=== PATIENT | female | born 1970 | race Two or more races ===

== ENCOUNTER → 2016-11-12 | Outpatient (CLI) | payer OTHER | LOC: M PAIN 11:20 | PROVIDERS: ATTEND Anesthesiology | DX: Z53.29 Procedure and treatment not carried out because of patient's decision for other reasons (principal) ==

== ENCOUNTER → 2016-11-21 | Outpatient (CLI) | payer OTHER ==
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
== END ==
LOC: M PAIN 11:20
PROVIDERS: ATTEND Nurse Practitioner Family
DX: G89.29 Other chronic pain (principal); M53.3 Sacrococcygeal disorders, not elsewhere classified; I10 Essential (primary) hypertension; E11.9 Type 2 diabetes mellitus without complications; J45.909 Unspecified asthma, uncomplicated; F32.9 Major depressive disorder, single episode, unspecified; E78.00 Pure hypercholesterolemia, unspecified; K21.9 Gastro-esophageal reflux disease without esophagitis; Z79.899 Other long term (current) drug therapy; Z79.84 Long term (current) use of oral hypoglycemic drugs; Z87.891 Personal history of nicotine dependence

== ENCOUNTER → 2016-12-16 | Outpatient (CLI) | payer OTHER ==
--- NOTE | 2016-12-27 23:37 | ECWPNPC ---
PATIENT NAME: BRAULIO JEFFERS : 1970 GENDER: FEMALE VISIT DATE: 12/16/2016 DISCHARGE DATE: 12/16/16 1055 VISIT LOCKED DATE TIME: PHYSICIAN: YNES GAXIOLA RESOURCE: YNES GAXIOLA REASON FOR APPOINTMENT 1. SIJ HISTORY OF PRESENT ILLNESS HISTORY OF PRESENT ILLNESS: PAIN THE PATIENT DESCRIBES THE PAIN... 46 YEAR OLD FEMALE PATIENT WITH HISTORY OF CHRONIC NECK AND LOW BACK PAIN. PATIENT DESCRIBES THE PAIN ACHING, BURNING, TENDER, THROBBING, SHOOTING AND HAVING IT ALL THE TIME WITH A PAIN SCORE OF 8/10 ON TODAY'S VISIT. PATIENT STATES THAT SHE HAD BACK SURGERY IN 2012, PATIENT STATES THAT SHE HAS RADIATING PAIN DOWN HER RIGHT LEG. , PATIENT DENIES UNEXPLAINABLE WEIGHT LOSS, FEVER, CHILLS, NEW CHANGES ON HER URINARY OR BOWEL CONTROL. FALL RISK SCREENING: SCREENING :NO FALLS IN THE PAST YEAR CURRENT MEDICATIONS TAKING DEXILANT 60 MG CAPSULE DELAYED RELEASE 1 CAPSULE ORALLY ONCE A DAY, NOTES: 12-16-16499 TAKING FARXIGA 10 MG TABLET 1 TABLET ORALLY ONCE A DAY, NOTES: 12-15-16 AM TAKING GABAPENTIN 300 MG CAPSULE 1 CAPSULE ORALLY THREE TIMES A DAY, NOTES: 12-16-16499 TAKING JANUVIA 100 MG TABLET 1 TABLET ORALLY ONCE A DAY, NOTES: 12-15-16 AM TAKING METFORMIN HCL 1000 MG TABLET 1 TABLET WITH MEALS ORALLY TWICE A DAY, NOTES: 12-15-16 PM TAKING SYMBICORT 160-4.5 MCG/ACT AEROSOL 2 PUFFS INHALATION TWICE A DAY, NOTES: 12-16-16499 TAKING TOPIRAMATE 25 MG TABLET 1 TABLET ORALLY DAILY, NOTES: 12-15-162099 TAKING ATORVASTATIN CALCIUM 10 MG TABLET 1 TABLET ORALLY ONCE A DAY, NOTES: 12-15-162099 TAKING FENOFIBRATE 48 MG TABLET 1 TABLET ORALLY ONCE A DAY, NOTES: 12-15-162099 TAKING AMITRIPTYLINE HCL 75 MG TABLET 1 TABLET ORALLY ONCE A DAY, NOTES: 12-15-162099 TAKING MONTELUKAST SODIUM 10 MG TABLET 1 TABLET IN THE EVENING ORALLY ONCE A DAY, NOTES: 12-15-162099 TAKING MELOXICAM 7.5 MG TABLET 1 TABLET ORALLY BID, NOTES: 12-16-16499 TAKING VITAMIN D-3 1000 UNIT CAPSULE 2 CAPSULE ORALLY ONCE A DAY, NOTES: 12-16-16 0500 TAKING TELMISARTAN 80 MG TABLET 1 TABLET ORALLY ONCE A DAY, NOTES: 12-16-16 0500 TAKING EXCEDRIN MIGRAINE 250-250-65 MG TABLET 2 TABLETS NEEDED ORALLY EVERY 6 HRS, NOTES: 12-15-16 2100 DISCONTINUED HYDROCODONE-ACETAMINOPHEN 5-325 MG TABLET 1 TABLET NEEDED ORALLY EVERY 6 HRS MEDICATION LIST REVIEWED AND RECONCILED WITH THE PATIENT PAST MEDICAL HISTORY HYPERTENSION ASTHMA HIGH CHOLESTEROL DEPRESSION DIABETES GERD ALLERGIES N.K.D.A. SURGICAL HISTORY TUBAL LIGATION 1995 LUMBAR 2013 FAMILY HISTORY NO FAMILY HISTORY DOCUMENTED. SOCIAL HISTORY GENERAL: TOBACCO USE ARE YOU A:NONSMOKER LEARNING BARRIERS / SPECIAL NEEDS ORIENTED TO PLAN OF CARE: PATIENT, PAIN MANAGEMENT PATIENT, ORIENTED TO PLAN OF CARE: PATIENT, PAIN MANAGEMENT PATIENT. NEW PATIENT PAIN DIARY TODAY'S VISITNOTES FROM 0-10, WHAT LEVEL IS YOUR PAIN TODAY?0 PAIN CLINIC PFS, CLERGY, PUBLIC HEALTH REFERRALS PFS REFERRAL NEEDED?NO CLERGY REFERRAL NEEDED?NO PUBLIC HEALTH REFERRAL NEEDED?NO WAS THE PROVIDER NOTIFIED OF ANY PERTINENT INFO?NO PFS REFERRAL NEEDED?NO CLERGY REFERRAL NEEDED?NO PUBLIC HEALTH REFERRAL NEEDED?NO WAS THE PROVIDER NOTIFIED OF ANY PERTINENT INFO?NO HOSPITALIZATION/MAJOR DIAGNOSTIC PROCEDURE ASTHMA CHILD 1975 REVIEW OF SYSTEMS CONSTITUTIONAL: ANY CHANGE IN YOUR MEDICAL CONDITION? NO . CHILLS NO . FEVER NO . INFECTION: DO YOU HAVE NEW INFECTIONS? NO . DO YOU HAVE HISTORY OF MRSA? NO . MUSCULOSKELETAL: ANY NEW PATTERNS OF PAIN OR NUMBNESS? YES, SAME PAIN NOW CONTINUOUS AND WITH SOME NUMBNESS DOWN LEG . GASTROENTEROLOGY: ANY NEW CHANGE IN BOWEL CONTROL? NO . GENITOURINARY: ANY NEW CHANGE IN BLADDER CONTROL? NO . IS THERE A CHANCE YOU COULD BE ? NO . HEMATOLOGY/LYMPH: DO YOU TAKE ANY BLOOD THINNERS? (FOR EXAMPLE- COUMADIN, PLAVIX, AGGRENOX, PLATEL, PRADAXA, OR XARELTO) NO . WHEN WAS YOUR LAST DOSE? DATE: TIME: . NEUROLOGY: HAVE YOU FALLEN IN THE PAST 6 MONTHS? NO . ANY NEW EXTREMITY NUMBNESS OR WEAKNESS? NO . CARDIOLOGY: DO YOU HAVE A PACEMAKER OR DEFIBRILLATOR? NO . RESPIRATORY: HAVE YOU BEEN SICK IN THE PAST WEEK? NO . FEVER NO . FLU LIKE SYMPTOMS? NO . COUGH NO . INTEGUMENTARY: DO YOU HAVE ANY RASHES OR OPEN SORES? NO . ALLERGIC/IMMUNO: ARE YOU ALLERGIC TO SHELLFISH OR IV DYE? NO . ANY NEW ALLERGIES? NO . PSYCHIATRIC: DO YOU HAVE THOUGHTS OF HURTING YOURSELF OR SOMEONE ELSE? NO . ARE YOU ABUSED, NEGLECTED, OR IN AN UNSAFE ENVIRONMENT? NO . ENDOCRINOLOGY: ARE YOU DIABETIC? YES . OTHER: DO YOU NEED ANY PRESCRIPTIONS? NO . IF YES, PLEASE LIST: ____ . ANY NEW PROBLEMS WITH YOUR MEDICATIONS? NO . WHEN DID YOU LAST EAT? 12-15-16 PM . WHEN DID YOU LAST DRINK? 12-16-16 0500 . WHAT DID YOU LAST DRINK? WATER . NAME OF PERSON DRIVING YOU HOME? EVE . DO YOU HAVE ANY OTHER QUESTIONS OR CONCERNS YES, HAD AN INJECTION IN RIGHT BUTTOCKS 12/09/[address] RAMOS . REVIEWED BY: PROVIDER: YNES GAXIOLA MD . VITAL SIGNS WT 189.0 LBS, HT 60 IN, BMI 36.91 INDEX, BP 148/85 MM HG, HR 107 /MIN, RR 18 /MIN, TEMP 96.5 F, OXYGEN SAT % 98, NA INITIALS TL 0948, REVIEWED BY: CM. EXAMINATION : PATIENT IS ALERT O X 3 AND COOPERATIVE. PATIENT AMBULATES WITH A LIMP ON THE RIGHT LEG. PATIENT RIGHT LEG IS WEAKER AT EXTENSION AND FLEXION. THERE IS TENDERNESS IN HER LOW BACK AREA. ASSESSMENTS POSTLAMINECTOMY SYNDROME, NOT ELSEWHERE CLASSIFIED - M96.1 (PRIMARY) INTERVERTEBRAL DISC DISORDERS WITH RADICULOPATHY, LUMBAR REGION - M51.16 INTERVERTEBRAL DISC DISORDERS WITH RADICULOPATHY, LUMBOSACRAL REGION - M51.17 TREATMENT POSTLAMINECTOMY SYNDROME, NOT ELSEWHERE CLASSIFIED NOTES: WE DISCUSSED SEVERAL ISSUES WITH MS. JEFFERS'S PAIN MANAGEMENT CASE. AT THIS TIME I WILL INCREASE THE MMD OF GABAPENTIN TO 4 TIMES A DAY. ADVISE PATIENT SHOULD SHE EXPERIENCE ANY SEVERE SYMPTOMS TO STOP TAKING THE MEDICATION IMMEDIATELY. AND IF THE SYMPTOMS PERSIST GO TO THE ER. PATIENT TO FOLLOW UP WITH TRAE TRONCOSO IN 2 TO 3 WEEKS. INSTRUCTIONS WERE GIVEN, QUESTIONS WERE ANSWERED, PATIENT REPORTS UNDERSTANDING AND AGREES WITH THE PLAN. I, ANGY HIGUERA, DOCUMENTED THE ABOVE INFORMATION ACTING A SCRIBE FOR DR. GAXIOLA. I HAVE REVIEWED THE ABOVE DOCUMENT, WRITTEN BY ANGY SANDERS AND I VERIFY THAT IT IS ACCURATE. OTHERS REFILL GABAPENTIN CAPSULE, 300 MG, 1 CAPSULE, ORALLY FOR PAIN, FOUR TIMES DAILY, 30 DAY(S), 120, REFILLS 2, NOTES: 12-16-16 0500 PROCEDURE CODES FA211 ESTABILISHED PATIENT [facility] CHARGE G8730 PAIN ASSESS POS TOOL F/U PLAN DOC G8427 DOC MEDS VERIFIED W/PT OR RE DISPOSITION & COMMUNICATION FOLLOW UP 3 WEEKS ELECTRONICALLY SIGNED BY YNES GAXIOLA MD ON 12/27/2016 AT 09:05 PM EDT DISCLAIMER : THIS IS A VISIT SUMMARY EXTRACTED FROM THE [email or web address] CHART. IT IS NOT A COPY OF THE [email or web address] PROGRESS NOTE. MTDD
== END ==
LOC: M PAIN 09:40
PROVIDERS: ATTEND Anesthesiology
DX: Z09 Encounter for follow-up examination after completed treatment for conditions other than malignant neoplasm (principal); G89.29 Other chronic pain; M96.1 Postlaminectomy syndrome, not elsewhere classified; M51.16 Intervertebral disc disorders with radiculopathy, lumbar region; M51.17 Intervertebral disc disorders with radiculopathy, lumbosacral region; I10 Essential (primary) hypertension; J45.909 Unspecified asthma, uncomplicated; E78.00 Pure hypercholesterolemia, unspecified; F32.9 Major depressive disorder, single episode, unspecified; E11.9 Type 2 diabetes mellitus without complications; K21.9 Gastro-esophageal reflux disease without esophagitis; Z79.84 Long term (current) use of oral hypoglycemic drugs; Z79.899 Other long term (current) drug therapy

== ENCOUNTER → 2016-12-30 | Outpatient (CLI) | payer OTHER ==
--- NOTE | 2016-12-31 00:21 | ECWPNPC ---
PATIENT NAME: BRAULIO JEFFERS : 1970 GENDER: FEMALE VISIT DATE: 12/30/2016 DISCHARGE DATE: 12/30/16 1028 VISIT LOCKED DATE TIME: PHYSICIAN: TRAE TRONCOSO RESOURCE: TRAE TRONCOSO REASON FOR APPOINTMENT 1. NECK AND BACK AREA HISTORY OF PRESENT ILLNESS HISTORY OF PRESENT ILLNESS: HERE FOR F/U HAD MANAGEMENT OF CHRONIC NECK AND LBP.HAS BEEN FOLLOWING WITH DR. RAMOS AND RECIEVING INJECTIONS IN NECK AND LOW BACK.SOME HAVE HELPED AND SOME HAVE AGGREVATED.DR. GAXIOLA INCREASED GABAPENTIN 300MG TO QID FROM TID ON 12-16-16 THAT HAS RESOLVED RIGHT HIP PAIN.RATING PAIN VAS 3/10.C/O HEADACHE TODAY.WILL BE HAVING NCS LOWER EXTREMITIES ORDERED BY DR. RAMOS IN NEAR FUTURE.DR. RAMOS ALSO STATES SHE MAY BE HAVING NECK SURGERY IN NEAR FUTURE.HISTORY OF LUMBAR SURGERY APRIL 2013 [facility] WHICH WAS HELPFUL UNTIL LAST YEAR.DESCRIBES NECK PAIN NUMBNESS AND PAIN BASE OF NECK THAT RADIATES INTO HEADACHE. PAIN THE PATIENT DESCRIBES THE PAIN... FALL RISK SCREENING: SCREENING :NO FALLS IN THE PAST YEAR CURRENT MEDICATIONS TAKING GABAPENTIN 300 MG CAPSULE 1 CAPSULE ORALLY FOR PAIN FOUR TIMES DAILY, NOTES: 12-16-16499 TAKING DEXILANT 60 MG CAPSULE DELAYED RELEASE 1 CAPSULE ORALLY ONCE A DAY, NOTES: 12-16-16499 TAKING FARXIGA 10 MG TABLET 1 TABLET ORALLY ONCE A DAY, NOTES: 12-15-16 AM TAKING JANUVIA 100 MG TABLET 1 TABLET ORALLY ONCE A DAY, NOTES: 12-15-16 AM TAKING METFORMIN HCL 1000 MG TABLET 1 TABLET WITH MEALS ORALLY TWICE A DAY, NOTES: 12-15-16 PM TAKING SYMBICORT 160-4.5 MCG/ACT AEROSOL 2 PUFFS INHALATION TWICE A DAY, NOTES: 12-16-16499 TAKING TOPIRAMATE 25 MG TABLET 1 TABLET ORALLY DAILY, NOTES: 12-15-162099 TAKING ATORVASTATIN CALCIUM 10 MG TABLET 1 TABLET ORALLY ONCE A DAY, NOTES: 12-15-162099 TAKING FENOFIBRATE 48 MG TABLET 1 TABLET ORALLY ONCE A DAY, NOTES: 12-15-162099 TAKING AMITRIPTYLINE HCL 75 MG TABLET 1 TABLET ORALLY ONCE A DAY, NOTES: 12-15-162099 TAKING MONTELUKAST SODIUM 10 MG TABLET 1 TABLET IN THE EVENING ORALLY ONCE A DAY, NOTES: 12-15-162099 TAKING MELOXICAM 7.5 MG TABLET 1 TABLET ORALLY BID, NOTES: 12-16-16499 TAKING VITAMIN D-3 1000 UNIT CAPSULE 2 CAPSULE ORALLY ONCE A DAY, NOTES: 12-16-16499 TAKING TELMISARTAN 80 MG TABLET 1 TABLET ORALLY ONCE A DAY, NOTES: 12-16-16499 TAKING EXCEDRIN MIGRAINE 250-250-65 MG TABLET 2 TABLETS NEEDED ORALLY EVERY 6 HRS, NOTES: 12-15-162099 MEDICATION LIST REVIEWED AND RECONCILED WITH THE PATIENT PAST MEDICAL HISTORY HYPERTENSION ASTHMA HIGH CHOLESTEROL DEPRESSION DIABETES GERD BACK AND NECK PAIN ALLERGIES N.K.D.A. SOCIAL HISTORY GENERAL: TOBACCO USE ARE YOU A:NONSMOKER LEARNING BARRIERS / SPECIAL NEEDS ORIENTED TO PLAN OF CARE: PATIENT, PAIN MANAGEMENT PATIENT, ORIENTED TO PLAN OF CARE: PATIENT, PAIN MANAGEMENT PATIENT. NEW PATIENT PAIN DIARY TODAY'S VISITNOTES FROM 0-10, WHAT LEVEL IS YOUR PAIN TODAY?0 PAIN CLINIC PFS, CLERGY, PUBLIC HEALTH REFERRALS PFS REFERRAL NEEDED?NO CLERGY REFERRAL NEEDED?NO PUBLIC HEALTH REFERRAL NEEDED?NO WAS THE PROVIDER NOTIFIED OF ANY PERTINENT INFO?NO PFS REFERRAL NEEDED?NO CLERGY REFERRAL NEEDED?NO PUBLIC HEALTH REFERRAL NEEDED?NO WAS THE PROVIDER NOTIFIED OF ANY PERTINENT INFO?NO REVIEW OF SYSTEMS CONSTITUTIONAL: ANY CHANGE IN YOUR MEDICAL CONDITION? NO . RECENT ILLNESS DENIES . CHILLS NO . FEVER NO . WEIGHT LOSS DENIES . INFECTION: DO YOU HAVE NEW INFECTIONS? NO . DO YOU HAVE HISTORY OF MRSA? NO . MUSCULOSKELETAL: ANY NEW PATTERNS OF PAIN OR NUMBNESS? NO . GASTROENTEROLOGY: ANY NEW CHANGE IN BOWEL CONTROL? NO . GENITOURINARY: ANY NEW CHANGE IN BLADDER CONTROL? NO . IS THERE A CHANCE YOU COULD BE ? NO . HEMATOLOGY/LYMPH: DO YOU TAKE ANY BLOOD THINNERS? (FOR EXAMPLE- COUMADIN, PLAVIX, AGGRENOX, PLATEL, PRADAXA, OR XARELTO) NO . WHEN WAS YOUR LAST DOSE? DATE: TIME: . NEUROLOGY: HAVE YOU FALLEN IN THE PAST 6 MONTHS? NO . ANY NEW EXTREMITY NUMBNESS OR WEAKNESS? NO . CARDIOLOGY: DO YOU HAVE A PACEMAKER OR DEFIBRILLATOR? NO . CHEST PAIN DENIES . SHORTNESS OF BREATH DENIES . RESPIRATORY: HAVE YOU BEEN SICK IN THE PAST WEEK? NO . FEVER NO . FLU LIKE SYMPTOMS? NO . COUGH NO, DENIES . SHORTNESS OF BREATH DENIES . INTEGUMENTARY: DO YOU HAVE ANY RASHES OR OPEN SORES? NO . ALLERGIC/IMMUNO: ARE YOU ALLERGIC TO SHELLFISH OR IV DYE? NO . ANY NEW ALLERGIES? NO . PSYCHIATRIC: DO YOU HAVE THOUGHTS OF HURTING YOURSELF OR SOMEONE ELSE? NO . ARE YOU ABUSED, NEGLECTED, OR IN AN UNSAFE ENVIRONMENT? NO . ENDOCRINOLOGY: ARE YOU DIABETIC? YES . OTHER: DO YOU NEED ANY PRESCRIPTIONS? NO . IF YES, PLEASE LIST: ____ . ANY NEW PROBLEMS WITH YOUR MEDICATIONS? NO . WHEN DID YOU LAST EAT? ____ . WHEN DID YOU LAST DRINK? ____ . WHAT DID YOU LAST DRINK? ____ . NAME OF PERSON DRIVING YOU HOME? ____ . DO YOU HAVE ANY OTHER QUESTIONS OR CONCERNS NO . REVIEWED BY: PROVIDER: TRAE CHIU . VITAL SIGNS WT 190.6 LBS, HT 60 IN, BMI 37.22 INDEX, BP 162/96 MM HG, HR 91 /MIN, RR 16 /MIN, TEMP 97.1 F, OXYGEN SAT % 92%, NA INITIALS SC09:32, REVIEWED BY: AD. EXAMINATION GENERAL EXAMINATION: HEENT:HEAD:, NORMOCEPHALIC, EYES:, EYES NORMAL, NOSE:, NOSE CLEAR, THROAT: NORMAL. LUNGS:LUNG SOUNDS ARE CLEAR. HEART:HEART RATE REGULAR. ABDOMEN:SOFT AND NOT TENDER, NON-DISTENDED. MUSCULOSKELETAL:*. LUMBAR SACRAL SPINEMUSCLE STRENGTH TESTING 5/5 BILATERAL LOWER EXTREMITIES. PALPATION: + FOR PAIN OVER L/S SPINE. + FOR PAIN OVER L/S PARASPINALS.SPECIFIC POINT TENDERNESS OVER RIGHT SIJ.WELL HEALED SURGICAL SCAR L/S SPINE.. THORACIC SPINENEGATIVE FOR PAIN WITH PALPATION OF THORACIC SPINE. NEGATIVE FOR PAIN WITH PALPATION OF THORACIC PARASPINAL. CERVICALPOSITIVE FOR PAIN WITH PALPATION OF CERVICAL SPINE. POSITIVE FOR PAIN WITH PALPATION OF CERVICAL PARASPINALS RIGHT SIDE ONLY.. NEGATIVE FOR PAIN WITH PALPATION OF TRAPEZIUS BILAT. POINT TENDERNESS OVER RIGHT SCAPULAR AND RIGHT SHOULDER.. SKIN:NORMAL, NO RASH. NEUROLOGIC EXAM:ALERT AND ORIENTED X 3, DTRS 1-2+ IN ALL 4 EXTREMITIES, DENIES UPPER EXTREMETIES SENSORY LOSS, DENIES LOWER EXTREMETIES SENSORY LOSS. DIAGNOSTIC: . DIAGNOSTIC:MRI L/S [id number]. ASSESSMENTS CERVICALGIA - M54.2 (PRIMARY) TREATMENT CERVICALGIA CONTINUE GABAPENTIN CAPSULE, 300 MG, 1 CAPSULE, ORALLY FOR PAIN, FOUR TIMES DAILY, NOTES: 12-16-16 0500 PROCEDURE CODES FA211 ESTABILISHED PATIENT [facility] CHARGE DISPOSITION & COMMUNICATION FOLLOW UP 2 MONTHS ELECTRONICALLY SIGNED BY ARAM CARTER ON 12/30/2016 AT 05:22 PM EDT DISCLAIMER : THIS IS A VISIT SUMMARY EXTRACTED FROM THE [employer] CHART. IT IS NOT A COPY OF THE [employer] PROGRESS NOTE. MTDD
== END ==
LOC: M PAIN 09:20
PROVIDERS: ATTEND Nurse Practitioner Family
DX: M54.2 Cervicalgia (principal); M54.5 Low back pain; G89.29 Other chronic pain; Z79.84 Long term (current) use of oral hypoglycemic drugs; Z79.899 Other long term (current) drug therapy; I10 Essential (primary) hypertension; J45.909 Unspecified asthma, uncomplicated; E11.9 Type 2 diabetes mellitus without complications; E78.00 Pure hypercholesterolemia, unspecified; E32.9 Disease of thymus, unspecified; K21.9 Gastro-esophageal reflux disease without esophagitis

== ENCOUNTER → 2017-01-07 | Outpatient (CLI) | payer OTHER ==
--- NOTE | 2017-01-07 10:06 | REP ---
MRI CERVICAL SPINE WITHOUT CONTRAST: HISTORY: Neck pain. COMPARISON: 07/18/2016. A disc bulge is present at the C4-5 level. There is minimal effacement of the thecal sac without spinal cord compression. The C4 neural foramina are patent. A disc bulge and small central disc extrusion with associated osteophyte formation are present at the C5-6 level. There is minimal spinal cord compression. Bilateral uncinate process hypertrophy is present. This produces mild and moderate narrowing of the right and left C5 neural foramina respectively. There is no other disc bulge or herniation. The remaining neural foramina are patent. The spinal cord is normal in signal intensity. The C5-6 intervertebral disc is decreased in height consistent with disc degeneration. Normal signal intensity is present in the cervical vertebral bodies. IMPRESSION: There is cervical spondylosis at the C4-5 and C5-6 levels most significant at the C5-6 level where there is minimal spinal cord compression. There is no change compared to the previous study. Signed by Marlo Amador MD 01/07/2017 10:11 A
== END ==
LOC: M RAD 08:51
PROVIDERS: ATTEND Neurological Surgery
DX: M47.892 Other spondylosis, cervical region (principal)

== ENCOUNTER → 2017-02-02 | Outpatient (CLI) | payer OTHER ==
--- NOTE | 2017-02-05 09:12 | SLEEPHOME ---
DATE OF PROCEDURE: 02/02/2017 ORDERED BY: Mell Dewey. INTERPRETATION: Diagnostic home sleep testing was performed due to concern for the obstructive sleep apnea syndrome. Testing was performed using a NOX-T3 respiratory monitoring device. Continuous record was made of pulse, oxygen saturation, air flow, chest and abdominal strain and body position. 9 hours and 59 minutes of data were reviewed. There were 8 hours and 15 minutes marked as time in bed. During the interval marked time in bed, there were 52 respiratory events identified of 10 seconds in duration or greater for a respiratory event index of 6.3. The events were primarily obstructive but mixed and central apneas were also seen. Baseline pulse rate 90 beats per minute. Patient's pulse rate ranged from 62 to 123. Baseline saturation 91%. Lowest oxygen saturation 87%. Testing was performed in both the supine and non-supine positions. IMPRESSION: Abnormal home sleep testing with repetitive respiratory events and oxygen desaturations to 87% with a respiratory event index of 6.3 is consistent with the obstructive sleep apnea syndrome. RECOMMENDATION: The patient should be encouraged to undergo formal sleep evaluation and in laboratory pressure titration.
== END ==
LOC: M SLEEP HO 10:52
PROVIDERS: ATTEND Nurse Practitioner Adult Health
DX: G47.30 Sleep apnea, unspecified (principal)

== ENCOUNTER → 2017-09-16 | Outpatient (CLI) | payer OTHER | LOC: M PAIN 09:15 | DX: G89.29 Other chronic pain (principal); M54.2 Cervicalgia; M47.812 Spondylosis without myelopathy or radiculopathy, cervical region; M79.1 Myalgia; I10 Essential (primary) hypertension; J45.909 Unspecified asthma, uncomplicated; E78.00 Pure hypercholesterolemia, unspecified; F32.9 Major depressive disorder, single episode, unspecified; E11.9 Type 2 diabetes mellitus without complications; K21.9 Gastro-esophageal reflux disease without esophagitis; Z79.899 Other long term (current) drug therapy | CPT/HCPCS: G0463 ==

== ENCOUNTER → 2019-08-15 | Outpatient (CLI) | payer OTHER ==
--- NOTE | 2019-08-15 14:57 | REP ---
MRI lumbar spine: 08/15/2019. Indication: Lumbar radiculopathy. Comparison: 09/15/2016. Technique: Multiplanar short years sequences were obtained without IV Gadolinium. Findings: There is minimal anterolisthesis of L4 on L5 secondary to facet arthropathy. There is disc space narrowing, disc desiccation and mild retrolisthesis of L5 on S1. No worrisome marrow signal is present. Disc dessication is additionally noted at L3/L4 and L4/L5. No acute paraspinal soft tissue abnormalities are detected. L1/L2 and L2/L3: Unremarkable. L3/L4: Minor diffuse disc bulge is present with left-sided facet arthropathy. There is no significant spinal canal or neural foraminal narrowing. L4/L5: Diffuse disc bulge and bilateral facet arthropathy are present with moderate narrowing of the lateral recesses bilaterally. Mild to moderate bilateral neural foraminal narrowing is present. L5/S1: There is a right paracentral disc extrusion with approximately 5 mm of caudal migration superimposed on a diffuse disc bulge. Bilateral facet arthropathy is present. There is moderate right lateral recess and neural foraminal narrowing. Mild to moderate left neural foraminal narrowing is present. Postoperative sequelae are noted. 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 Electronically Signed by Charlie Tabor DO 08/15/2019 02:49 P
== END ==
LOC: M RAD 12:55
PROVIDERS: ATTEND Family Medicine
DX: M51.37 Other intervertebral disc degeneration, lumbosacral region (principal); G95.9 Disease of spinal cord, unspecified

== ENCOUNTER → 2019-11-21 | Outpatient (CLI) | payer OTHER ==
--- NOTE | 2019-11-21 10:13 | REPVR ---
PROCEDURE INFORMATION: Exam: MR Cervical Spine Without Contrast Exam date and time: 11/21/2019 8:23 AM Age: 49 years old Clinical indication: Neck pain; Additional info: Neck pain, olnar neuropathy of connie upper ext TECHNIQUE: Imaging protocol: Multiplanar magnetic resonance images of the cervical spine without contrast. COMPARISON: MRI-Spine,Cervical without con 01/07/2017 9:02 AM FINDINGS: Vertebrae: Mild reversal of the normal cervical curvature at the C5-C6 level. Otherwise alignment is anatomic. The vertebral body heights are maintained. No compression fracture. No suspicious marrow replacing lesions. Spinal cord: No intrinsic cord lesion. No Chiari malformation. C2-C3: There is no disc herniation,spinal stenosis,or nerve root impingement. C3-C4: There is no disc herniation,spinal stenosis,or nerve root impingement. C4-C5: Minimal annular bulging. A good CSF space remains about the cord. There is no disc herniation,spinal stenosis,or nerve root impingement. C5-C6: Disc desiccation with disc space narrowing endplate degenerative change and anterior endplate spurring. Extruded disc herniation impressing on the ventral aspect of the cord closed with some flattening of the cord in the AP dimension. Moderate central canal stenosis. Disc bulging is asymmetric toward the left. There is left foraminal encroachment. The left C6 root is not as well demonstrated as the right C6 root. C6-C7: There is no disc herniation,spinal stenosis,or nerve root impingement. C7-T1: There is no disc herniation,spinal stenosis,or nerve root impingement. Vertebral arteries: Expected flow voids in the vertebral arteries. Soft tissues: No prevertebral soft tissue swelling. IMPRESSION: At C5-C6, mild reversal of the normal cervical curvature at the C5-C6 level. Disc desiccation with disc space narrowing endplate degenerative change and anterior endplate spurring. Extruded disc herniation impressing on the ventral aspect of the cord closed with some flattening of the cord in the AP dimension. Moderate central canal stenosis. There is left foraminal encroachment. The left C6 root is not as well demonstrated as the right C6 root. Electronically signed by: Russell Jackson On 11/21/2019 10:12:46 AM
== END ==
LOC: M RAD 07:06
PROVIDERS: ATTEND Physician Assistant Medical
DX: M25.78 Osteophyte, vertebrae (principal); M48.02 Spinal stenosis, cervical region; M50.222 Other cervical disc displacement at C5-C6 level; G56.23 Lesion of ulnar nerve, bilateral upper limbs

== ENCOUNTER → 2024-01-20 | Outpatient (CLI) | payer OTHER | LOC: M RAD 15:24 | PROVIDERS: ATTEND Family Medicine | DX: G95.9 Disease of spinal cord, unspecified (principal); M47.812 Spondylosis without myelopathy or radiculopathy, cervical region ==

== ENCOUNTER → 2024-01-28 | Outpatient (CLI) | payer OTHER | LOC: M RAD 07:06 | PROVIDERS: ATTEND Family Medicine | DX: G95.9 Disease of spinal cord, unspecified (principal) ==